=== PATIENT | female | born 1965 | race Caucasian/White ===

== ENCOUNTER 2019-02-13 08:44 | Emergency (ER) | payer SELFPAY ==
[~2019-02-13] VITALS: Ht 167.6 cm; Wt 70.0 kg
[~2019-02-13 08:44] MED LIST: DIPH-186 PO; HYDR-4383 PO
[2019-02-13 09:32] LABS: BASOPHILS % (AUTO) 0.2 % (0-1); EOSINOPHILS # (AUTO) 0.1 X10'3 (0-0.9); HEMATOCRIT 47.4 % (35.0-45.0); HEMOGLOBIN 16.2 g/dl (12.0-16.0); LYMPHOCYTES # (AUTO) 2.5 X10'3 (1.1-4.8); LYMPHOCYTES % (AUTO) 25.5 % (21-51); MEAN CORPUSCULAR HEMOGLOBIN 29.2 PG (27.0-31.0); MEAN CORPUSCULAR HGB CONC 34.2 g/dL (33.0-36.5); MEAN CORPUSCULAR VOLUME 85.4 FL (78-98); MEAN PLATELET VOLUME 8.2 FL (7.4-10.4); MONOCYTES # (AUTO) 0.6 X10'3 (0-0.9); MONOCYTES % (AUTO) 6.5 % (2-12); NEUTROPHILS # (AUTO) 6.6 X10'3 (1.8-7.7); NEUTROPHILS % (AUTO) 66.8 % (42-75); PLATELET COUNT 229 X10'3 (140-440); RED BLOOD COUNT 5.55 X10'6 (4.20-5.60); RED CELL DISTRIBUTION WIDTH 13.3 % (11.5-14.5); WHITE BLOOD COUNT 9.9 X10'3 (4.5-11.0)
[2019-02-13 09:49] LABS: ALANINE AMINOTRANSFERASE 29 U/L (12-78); ALBUMIN 3.7 G/DL (3.4-5.0); ALBUMIN/GLOBULIN RATIO 0.7 (1.1-1.5); ALKALINE PHOSPHATASE 155 IU/L (46-116); ANION GAP 9 (8-16); ASPARTATE AMINO TRANSFERASE 13 U/L (10-37); BILIRUBIN,TOTAL 0.6 MG/DL (0.1-1.0); BLOOD UREA NITROGEN 13 MG/DL (7-18); BUN/CREATININE RATIO 22.4 (6.6-38.0); CALCIUM 9.9 MG/DL (8.5-10.1); CHLORIDE 104 MMOL/L (99-107); CREATININE 0.58 MG/DL (0.40-0.90); GLUCOSE 108 MG/DL (70-104); POTASSIUM 4.8 MMOL/L (3.5-5.1); SODIUM 140 MMOL/L (135-145); TOTAL CARBON DIOXIDE 27.5 MMOL/L (24-32); TOTAL PROTEIN 8.9 G/DL (6.4-8.2); eGFR > 90 ML/MIN
[2019-02-13 09:53] LABS: CLARITY,URINE CLOUDY (Clear); GLUCOSE, URINE NEGATIVE (Neg); KETONES,URINE TRACE mg/dl (Neg); LEUKOCYTE ESTERASE ,URINE TRACE (Neg); NITRITES, URINE NEGATIVE (Neg); OCCULT BLOOD,URINE SMALL (Neg); PH,URINE 5.5 (4.8-8.0); PROTEIN,URINE TRACE mg/dl (Neg)
[2019-02-13 09:54] LABS: URINE HCG NEGATIVE (NEG)
[2019-02-13 10:05] LABS: UA COLLECTION TYPE CLN CATCH MIDSTREAM
[2019-02-13 10:06] LABS: COLOR,URINE DARK YELLOW (Yellow)
[2019-02-13 10:11] LABS: BACTERIA,URINE 2+ /HPF (Neg); MUCUS STRANDS MANY /LPF (Neg); SQUAMOUS EPITHELIAL CELL,UR MANY /LPF (FEW)
[2019-02-13] MEDS ORDERED: METR500T PO (10:16)
[2019-02-13 10:28] VITALS: BP 142/82
== END 2019-02-13 10:30 | disposition home or self-care (01) ==
LOC: ER 08:45
DX: K63.89 Other specified diseases of intestine (principal); R10.84 Generalized abdominal pain; F17.200 Nicotine dependence, unspecified, uncomplicated; Z56.0 Unemployment, unspecified; Z79.899 Other long term (current) drug therapy
CPT/HCPCS: 36415; 74176; 80053; 81001; 81025; 85025; 85610; 99284

== ENCOUNTER 2022-01-20 02:05 | Emergency (ER) | payer OTHER ==
[~2022-01-20] VITALS: Ht 167.6 cm; Wt 63.7 kg
[2022-01-20] MEDS ORDERED: ketorolac trometh inj. 60 MG/2 ML VIAL IM ONE (02:55)
[2022-01-20] MEDS ORDERED: amoxicillin 250mg capsule PO ONE (02:55)
[2022-01-20] MEDS ORDERED: ondansetron 4mg rapidly disintigrating tab PO ONE (02:55)
[2022-01-20] MEDS ORDERED: AMOX500C2 PO (02:56)
[2022-01-20 03:04] VITALS: BP 138/86
== END 2022-01-20 03:14 | disposition home or self-care (01) ==
LOC: ER 02:06
DX: K02.9 Dental caries, unspecified (principal); K08.89 Other specified disorders of teeth and supporting structures; Z56.0 Unemployment, unspecified; Z79.2 Long term (current) use of antibiotics; Z79.899 Other long term (current) drug therapy
CPT/HCPCS: 96372; 99283; J1885

== ENCOUNTER 2023-12-16 19:58 | Emergency (ER) | payer BC, OTHER ==
[~2023-12-16] VITALS: Ht 167.6 cm; Wt 78.4 kg
[2023-12-16 20:01] VITALS: BP 145/91; PULSE 98; RESP 16; O2SAT 98
[2023-12-16] MEDS ORDERED: HYDR-3686 PO (20:37)
[2023-12-16] MEDS ORDERED: CEPH-585 PO (20:37)
[2023-12-16] MEDS: CefTRIAXone 1000mg IM Kit (w/lidocaine diluent) IM ONE (20:51)
[2023-12-16 20:53] VITALS: TEMP 97.8
== END 2023-12-16 20:57 | disposition home or self-care (01) ==
LOC: ER 19:59
DX: T63.461A Toxic effect of venom of wasps, accidental (unintentional), initial encounter (principal); Z79.899 Other long term (current) drug therapy; Y92.89 Other specified places as the place of occurrence of the external cause
CPT/HCPCS: 96372; 99283; J0696